=== PATIENT | male | born 1970 | race Caucasian/White ===

== ENCOUNTER 2020-07-14 10:40 | Inpatient (IN) | payer SELFPAY ==
[2020-07-14 12:56] VITALS: BMI 22.8
[2020-07-14 13:54] LABS: SARS-CoV-2 NAA Rapid Test Not Detected (NotDetected)
[2020-07-14] MEDS ORDERED: Dextrose 5% in Water 1,000 ML IV PRN (13:58)
[2020-07-14] MEDS ORDERED: Dextrose 50% Abboject 50 ML SYRINGE SLOW IVP PRN (13:58)
[2020-07-14] MEDS ORDERED: hydrALAZINE 20 MG/ML VIAL SLOW IVP PRN (13:58)
[2020-07-14] MEDS ORDERED: traMADol HCl 50 MG TAB PO PRN (13:58)
[2020-07-14] MEDS ORDERED: Ondansetron PF 4 MG/2 ML Vial IVP PRN (13:58)
[2020-07-14] MEDS ORDERED: Ondansetron ODT 4 MG TAB PO PRN (13:58)
[2020-07-14] MEDS ORDERED: Morphine 2 MG/ML VIAL SLOW IVP PRN (13:58)
[2020-07-14] MEDS ORDERED: Gabapentin 300 MG CAP PO SCH (14:00)
[2020-07-14] MEDS: Sodium Chloride 0.9% 1,000 ML IV SCH ×2 (14:30→19:52)
[2020-07-14] MEDS: Acetaminophen 500 MG TAB PO SCH ×2 (14:50→19:53)
[2020-07-14] MEDS: Cyclobenzaprine 10 MG TAB PO PRN ×2 (15:38→23:33)
[2020-07-14] MEDS ORDERED: HumaLOG 300 UNITS/3 ML VIAL SC PRN (18:28)
[2020-07-14] MEDS: traMADol HCl 50 MG TAB PO PRN (18:30)
[2020-07-14] MEDS: HumaLOG 300 UNITS/3 ML VIAL SC PRN (18:50)
[2020-07-14] MEDS: Famotidine 20 MG TAB PO SCH (19:52)
[2020-07-14] MEDS: Gabapentin 300 MG CAP PO SCH (19:53)
[2020-07-15] MEDS: traMADol HCl 50 MG TAB PO PRN ×2 (03:53→10:32)
[2020-07-15] MEDS: Acetaminophen 500 MG TAB PO SCH ×4 (03:53→21:03)
[2020-07-15 05:34] LABS: #Eosinphils 0.1 thou/uL (0.0-0.7); #Lymphocytes 1.6 thou/uL (1.20-3.40); #Monocytes 0.7 thou/uL (0.11-0.59); #Neutrophils 6.4 thou/uL (1.40-6.50); %Basophils 0.5 % (0.0-1.0); %Eosinophils 0.9 % (0.0-10.0); %Lymphocytes 18.4 % (21.0-51.0); %Monocytes 7.5 % (0.0-10.0); %Neutrophils 72.7 % (42.0-75.0); Hemoglobin 13.7 g/dL (14.0-18.0); Mean Corpuscular HGB CONC 32.9 g/dL (32.0-36.0); Mean Corpuscular Hemoglobin 29.3 pg (27.0-31.0); Mean Platelet Volume 8.6 fL (7.4-10.4); Platelet Count 138 thou/uL (130-400); RBC Distribution Width 11.4 % (11.5-14.5); Red Blood Cell (RBC) Count 4.69 mill/uL (4.70-6.10); White Blood Cell (WBC) Count 8.8 thou/uL (4.8-10.8)
[2020-07-15 05:48] LABS: Hemoglobin A1c 11.5 % (4.0-6.0)
[2020-07-15 05:56] LABS: Phosphorus 3.6 mg/dL (2.3-4.7)
[2020-07-15 05:58] LABS: Anion Gap 9 mmol/L (10-20); BUN (Urea Nitrogen) 13 mg/dL (8.9-20.6); Calc. Creatinine Clearance 115 mL/min (70-130); Calcium 8.2 mg/dL (7.8-10.44); Carbon Dioxide 19 mmol/L (22-29); Chloride 109 mmol/L (98-107); Glucose 274 mg/dL (70-105); Magnesium 1.9 mg/dL (1.6-2.6); Potassium 4.3 mmol/L (3.5-5.1); Sodium 133 mmol/L (136-145)
[2020-07-15] MEDS: Famotidine 20 MG TAB PO SCH ×2 (08:15→21:04)
[2020-07-15] MEDS: Gabapentin 300 MG CAP PO SCH ×2 (08:15→21:04)
[2020-07-15] MEDS: Cyclobenzaprine 10 MG TAB PO PRN ×2 (08:19→18:20)
[2020-07-15] MEDS: HumaLOG 300 UNITS/3 ML VIAL SC PRN ×3 (12:33→21:05)
[2020-07-15] MEDS ORDERED: traMADol HCl 50 MG TAB PO PRN ×2 (14:49→14:50)
[2020-07-15] MEDS ORDERED: HumaLOG 300 UNITS/3 ML VIAL SC PRN (18:27)
[2020-07-15] MEDS ORDERED: Senokot S 8.6-50 MG TAB PO SCH (21:00)
[2020-07-16] MEDS: Acetaminophen 500 MG TAB PO SCH ×4 (03:34→21:06)
[2020-07-16] MEDS: HumaLOG 300 UNITS/3 ML VIAL SC PRN ×3 (06:16→21:07)
[2020-07-16] MEDS ORDERED: Polyethylene Glycol 3350 17 GM Packet PO SCH (09:00)
[2020-07-16] MEDS: Gabapentin 300 MG CAP PO SCH ×2 (10:00→21:06)
[2020-07-16] MEDS: Polyethylene Glycol 3350 17 GM Packet PO SCH (10:00)
[2020-07-16] MEDS: Senokot S 8.6-50 MG TAB PO SCH ×2 (10:00→21:13)
[2020-07-16] MEDS: traMADol HCl 50 MG TAB PO SCH ×3 (12:37→23:44)
[2020-07-16] MEDS ORDERED: Dextrose 50% Abboject 50 ML SYRINGE SLOW IVP PRN (13:41)
[2020-07-16] MEDS ORDERED: Dextrose 5% in Water 1,000 ML IV PRN (13:41)
[2020-07-16] MEDS: Ibuprofen 200 MG TAB PO SCH ×2 (14:29→21:06)
[2020-07-16] MEDS: Cyclobenzaprine 10 MG TAB PO PRN (21:07)
[2020-07-17] MEDS: Acetaminophen 500 MG TAB PO SCH (04:13)
[2020-07-17] MEDS: traMADol HCl 50 MG TAB PO SCH ×4 (06:10→23:20)
[2020-07-17] MEDS: Ibuprofen 200 MG TAB PO SCH ×3 (06:11→20:55)
[2020-07-17] MEDS: Polyethylene Glycol 3350 17 GM Packet PO SCH (09:43)
[2020-07-17] MEDS: Acetaminophen 325 MG TAB PO SCH ×3 (09:43→20:55)
[2020-07-17] MEDS: Gabapentin 300 MG CAP PO SCH ×2 (09:44→20:54)
[2020-07-17] MEDS: Senokot S 8.6-50 MG TAB PO SCH ×2 (09:44→20:55)
[2020-07-17] MEDS: Acetaminophen/Codeine 30-300mg Tablet PO SCH ×3 (09:45→20:56)
[2020-07-17] MEDS: HumaLOG 300 UNITS/3 ML VIAL SC PRN ×3 (13:14→20:56)
[2020-07-17] MEDS ORDERED: Bisacodyl 10 MG SUPP PR SCH (15:45)
[2020-07-18] MEDS: Acetaminophen 325 MG TAB PO SCH ×2 (04:26→10:06)
[2020-07-18] MEDS: Acetaminophen/Codeine 30-300mg Tablet PO SCH (04:27)
[2020-07-18] MEDS: Ibuprofen 200 MG TAB PO SCH (06:08)
[2020-07-18] MEDS: traMADol HCl 50 MG TAB PO SCH (06:08)
[2020-07-18] MEDS ORDERED: Magnesium Citrate 300 ML BOT PO SCH (06:30)
[2020-07-18 07:58] VITALS: BP 138/87; TEMP 97.6
[2020-07-18] MEDS: Gabapentin 300 MG CAP PO SCH (10:06)
[2020-07-18] MEDS: Polyethylene Glycol 3350 17 GM Packet PO SCH (10:07)
[2020-07-18] MEDS: Senokot S 8.6-50 MG TAB PO SCH (10:07)
[2020-07-18] MEDS: HumaLOG 300 UNITS/3 ML VIAL SC PRN (11:17)
== END 2020-07-18 11:31 | disposition home or self-care (01) | DRG 200 ==
LOC: CCU 12:12 → SURG A 18:43
PROVIDERS: ADMIT Specialist; ATTEND Specialist
DX: S27.0XXA Traumatic pneumothorax, initial encounter (principal); S22.41XA Multiple fractures of ribs, right side, initial encounter for closed fracture; Z20.822 Contact with and (suspected) exposure to COVID-19; S22.069A Unspecified fracture of T7-T8 vertebra, initial encounter for closed fracture; S22.079A Unspecified fracture of T9-T10 vertebra, initial encounter for closed fracture; W11.XXXA Fall on and from ladder, initial encounter; E11.65 Type 2 diabetes mellitus with hyperglycemia; Z85.528 Personal history of other malignant neoplasm of kidney; Z90.5 Acquired absence of kidney
CPT/HCPCS: 36415; 36416; 70450; 71045; 80048; 83036; 83735; 84100; 85025; 94640; J2270; J7620; U0002; U0005

== ENCOUNTER 2020-08-02 13:24 | Outpatient (CLI) | payer SELFPAY | END 2020-08-02 13:25 | disposition home or self-care (01) | LOC: RAD 13:24 | PROVIDERS: ATTEND Surgery | DX: S22.49XA Multiple fractures of ribs, unspecified side, initial encounter for closed fracture (principal) | CPT/HCPCS: 71046 ==